=== PATIENT | female | born 2005 | race African-American/Black ===

== ENCOUNTER 2024-04-10 15:24 | Emergency (ER) | payer OTHER ==
[~2024-04-10] VITALS: Ht 160 cm; Wt 100.0 kg
[2024-04-10 15:38] VITALS: BP 114/56; PULSE 81; RESP 18; TEMP 98.2
[2024-04-10] MEDS: KETOROLAC TROMETHAMINE 30 MG/ML VIAL IM ONE (18:04)
[2024-04-10] MEDS ORDERED: AMOX250C4 PO (18:17)
== END 2024-04-10 19:00 | disposition home or self-care (01) ==
LOC: EMS 15:24
DX: H60.12 Cellulitis of left external ear (principal)
CPT/HCPCS: 99283; 96372; J1885